=== PATIENT | male | born 1935 | race Caucasian/White ===

== ENCOUNTER → 2017-08-13 | Day surgery (SDC) | payer MEDICARE ==
--- NOTE | 2017-08-12 10:10 | Diagnostic Imaging Report ---
PROCEDURE: X-RAY CHEST, TWO VIEWS COMPARISON: 07/23/2016. INDICATIONS: PRE OPERATIVE CHEST X-RAY FOR HARDWARE REMOVAL FINDINGS: Lungs remain well-inflated and without consolidation, pleural effusion, or pneumothorax. 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 Normal heart size. No pulmonary edema. No acute osseous abnormality. CONCLUSION: No acute cardiopulmonary abnormality. Dictated by: Marshal Prabhakar M.D. on 08/12/2017 at 10:10 Electronically approved by: Marshal Prabhakar M.D. on 08/12/2017 at 10:10
[~2017-08-13] MED LIST: AMLODIPINE BESY10 MG PO; ASA325 PO; ASPIR 8181 MG PO; ASPIRIN PO; Aspirin PO; BACITRACIN 50,000 UNIT VIAL ONE; BUPIVACAINE 0.5%/EPI 30 ML SDV INJ ONE; CARVEDILOL3.125 MG PO; CEFAZOLIN SOD 1 GM VIAL ONE; DEXAMETHASONE SOD PHOS INJ 4 MG/ML VIAL ONE; DOCUSATE SODIU100 M1 PO; FENTANYL CITRATE/PF 100MCG/2 ML INJ ONE; FOSINOPRIL SODI10 MG PO; HUMALO SC; HYDROCHLOROTHIA25 MG; LANTUS SC; LEVEMIR100 UNIT/1 SQ; LIDOCAINE HCL 2% LOCAL INJ 5 ML SDV VIAL INJ ONE; NEOSTIGMINE 1 MG/ML 10ML VIAL ONE; NIFEDIPINE ER30 M1 PO; NIFEDIPINE ER60 M1 PO; NOVOLOG100 UNITS1 SQ; NRC7.5T PO; ONDANSETRON HCL INJ 2 MG/ML VIAL ONE; PROPOFOL IV EMULSION 10 MG/ML 20 ML VIAL ONE; SEVOFLURANE INHAL SOLN 250 ML PEN BTL ONE; SIMVASTATIN20 MG PO; ULTRAM 50MG50 MG PO; ULTRAM50 MG PO
--- OUTSIDE RECORDS SUMMARY | 2017-08-13 07:23 | XMS REPORT ---
Author Author [facility] Address Unknown Phone Unavailable Care Team Providers Care Crew Boss Name Role Phone MARSHAL GLOVER Unavailable Unavailable Problems This patient has no known problems. Allergies, Adverse Reactions, Alerts This patient has no known allergies or adverse reactions. Medications This patient has no known medications. Results Test Description Test Time Test Comments Text Results Atomic Results Result Comments CHEST 2 VIEWS [place] [address] Patient Name: EBENEZER BLUE MR #: [id number] : 1935 Age/Sex: 82/M Req #: [id number] Adm Physician: Ordered by: MARSHAL GLOVER MD Report #: [id number] Location: OR Room/Bed: Procedure: [id number] DX/CHEST 2 VIEWS Exam Date: 08/12/17 Exam Time: 0950 REPORT STATUS: Signed PROCEDURE: X-RAY CHEST, TWO VIEWS COMPARISON: 07/23/2016. INDICATIONS: PRE OPERATIVE CHEST X-RAY FOR HARDWARE REMOVAL FINDINGS: Lungs remain well-inflated and without consolidation, pleural effusion, or pneumothorax. 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 Normal heart size. No pulmonary edema. No acute osseous abnormality. CONCLUSION: No acute cardiopulmonary abnormality. Dictated by: Marshal Verduzco M.D. on 08/12/2017 at 10:10 Electronically approved by: Marshal Verduzco M.D. on 08/12/2017 at 10:10 Dictated By: MARSHAL VERDUZCO MD [id number] Transcribed By: KEYONNA on 08/12/17 1010 COPY TO: MARSHAL GLOVER MD
[2017-08-13 08:21] LABS: ANION GAP 12.4 mmol/L (8-16); CALCIUM 9.4 mg/dL (8.4-10.2); CREATININE, SERUM 1.35 mg/dL (0.72-1.25); POTASSIUM 4.4 mmol/L (3.5-5.1)
--- NOTE | 2017-08-13 10:37 | Operative Report ---
DATE OF PROCEDURE: August 13, 2017 COMMUNITY RELATIONS LIAISON: Jens Yang PA-C The patient was brought to the operating room for induction of anesthesia. Throughout this case, my PA's assistance was necessary for retraction of soft tissue and positioning of the extremity. This allows for efficient and technically successful execution of the operation and is considered medically necessary. PREOPERATIVE DIAGNOSIS: Right elbow complications of infection involving hardware. POSTOPERATIVE DIAGNOSIS: Right elbow complications of infection involving hardware. PROCEDURE: Right elbow irrigation and debridement with hardware removal. INDICATIONS: The patient is an 82-year-old gentleman who has medical comorbidities. 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 He fell several months ago and sustained an olecranon fracture. He was treated with an open reduction with internal fixation. This became infected. The bones have now essentially healed and he has a mild persistent draining sinus. We plan on debridement with hardware removal. The risks and benefits have been discussed. He states he understands and wishes to proceed. DESCRIPTION OF PROCEDURE: The patient was brought to the operating room and placed under general anesthetic. His right upper extremity was prepped and draped in a sterile manner. A preoperative time out was performed. The extremity was exsanguinated and a proximal tourniquet was inflated to 250 mmHg. The previous incision was opened. Some fibrous membrane was debrided. Cultures were taken. The hardware screws were removed. The plate was removed. A curette was used to debride all of the fibrous membrane. The wound was thoroughly irrigated with a Pulsavac. The screw holes were curetted. The wound was further irrigated with a Pulsavac. This all appeared nice and clean with complete removal of all the fibrous membrane that appeared infected. The skin was then closed with interrupted nylon stitches. Approximately 10 mL of 0.5% Marcaine with epinephrine was injected around the incision. A sterile bandage and a posterior splint was applied. He was extubated and transported to the recovery room in stable condition. There was no blood loss. All needle and sponge counts were correct. Job#: [id number] KRISTA
== END | disposition home or self-care (01) ==
LOC: OR 07:21
PROVIDERS: ATTEND Specialist
DX: T84.7XXA Infection and inflammatory reaction due to other internal orthopedic prosthetic devices, implants and grafts, initial encounter (principal); T84.192A Other mechanical complication of internal fixation device of bone of right forearm, initial encounter; Z46.89 Encounter for fitting and adjustment of other specified devices; I25.810 Atherosclerosis of coronary artery bypass graft(s) without angina pectoris; E11.22 Type 2 diabetes mellitus with diabetic chronic kidney disease; I13.0 Hypertensive heart and chronic kidney disease with heart failure and stage 1 through stage 4 chronic kidney disease, or unspecified chronic kidney disease; N18.9 Chronic kidney disease, unspecified; I50.9 Heart failure, unspecified; Y83.8 Other surgical procedures as the cause of abnormal reaction of the patient, or of later complication, without mention of misadventure at the time of the procedure; Z01.810 Encounter for preprocedural cardiovascular examination; Z01.818 Encounter for other preprocedural examination; Z79.4 Long term (current) use of insulin; Z68.33 Body mass index [BMI] 33.0-33.9, adult; Z91.81 History of falling; Z95.1 Presence of aortocoronary bypass graft; Z96.652 Presence of left artificial knee joint
CPT/HCPCS: 20680; 36415; 71046; 76000; 80048; 82948; 87071; 87075; 87186; 87205; 93005; J0690; J1100; J2001; J2405; J2710

== ENCOUNTER → 2021-11-14 | Day surgery (SDC) | payer MEDICARE ==
[~2021-11-14] MED LIST changes: +ATORVASTATIN CA20 MG PO; +ATROPINE SULFATE 1 MG/ML VIAL ONE; +B&O 60MG R/S 60 MG SUPP PR ONE; -BACITRACIN 50,000 UNIT VIAL ONE; -BUPIVACAINE 0.5%/EPI 30 ML SDV INJ ONE; -CEFAZOLIN SOD 1 GM VIAL ONE; +COREG6.25 MG PO; -DEXAMETHASONE SOD PHOS INJ 4 MG/ML VIAL ONE; +FLOMAX0.4 MG PO; +GLYCOPYRROLATE INJ 0.2 MG/ML VIAL ONE; +INSULIN REGULAR, HUMAN 100 UNIT/1 ML ONE; +IOPAMIDOL 610MG/1ML 300 MG/ML VIAL IV ONE; -NEOSTIGMINE 1 MG/ML 10ML VIAL ONE; -ONDANSETRON HCL INJ 2 MG/ML VIAL ONE; +ONDANSETRON HCL INJ 2MG/ML 2ML 2 MG/ML VIAL ONE; +PLAVIX75 MG PO; +POVIDONE IODINE 0.05% 0.05 % ML PO ONE; +SODIUM CHLORIDE 0.9% 1000ML 1,000 ML ONE
[2021-11-14 07:39] LABS: BASOPHILS # (AUTO) 0.1 (0.0-0.1); BASOPHILS % 1.4 % (0.0-1.0); EOSINOPHILS # (AUTO) 1.1 (0.0-0.4); EOSINOPHILS % 14.5 % (0.0-6.0); LYMPHOCYTES # (AUTO) 2.3 (1.0-3.2); MEAN CORPUSCULAR HEMOGLOBIN 29.9 pg (28-32); MEAN CORPUSCULAR HGB CONC 32.4 g/dL (31-35); MEAN CORPUSCULAR VOLUME 92.3 fL (81-99); MONOCYTES # (AUTO) 0.5 (0.2-0.8); MONOCYTES % 6.1 % (4.4-11.3); NEUTROPHILS # (AUTO) 3.6 (2.1-6.9); NEUTROPHILS % 47.5 % (38.7-80.0); PLATELET COUNT 224 x10e3/uL (140-360); RED BLOOD COUNT 4.01 x10e6/uL (4.3-5.7); RED CELL DISTRIBUTION WIDTH 13.5 % (11.7-14.4)
[2021-11-14 11:30] VITALS: BP 193/80
== END | disposition home or self-care (01) ==
LOC: OR 06:48
PROVIDERS: ATTEND Urology
DX: N40.0 Benign prostatic hyperplasia without lower urinary tract symptoms (principal); N39.0 Urinary tract infection, site not specified; E11.22 Type 2 diabetes mellitus with diabetic chronic kidney disease; I12.9 Hypertensive chronic kidney disease with stage 1 through stage 4 chronic kidney disease, or unspecified chronic kidney disease; N18.9 Chronic kidney disease, unspecified; N32.89 Other specified disorders of bladder; M19.90 Unspecified osteoarthritis, unspecified site; I25.2 Old myocardial infarction; I25.810 Atherosclerosis of coronary artery bypass graft(s) without angina pectoris; K21.9 Gastro-esophageal reflux disease without esophagitis; E66.9 Obesity, unspecified; H91.90 Unspecified hearing loss, unspecified ear; G62.9 Polyneuropathy, unspecified; Z88.6 Allergy status to analgesic agent; Z01.810 Encounter for preprocedural cardiovascular examination; Z01.812 Encounter for preprocedural laboratory examination; Z01.818 Encounter for other preprocedural examination; Z20.822 Contact with and (suspected) exposure to COVID-19; Z79.4 Long term (current) use of insulin; Z68.32 Body mass index [BMI] 32.0-32.9, adult; Z95.1 Presence of aortocoronary bypass graft; Z87.01 Personal history of pneumonia (recurrent)
CPT/HCPCS: 0223U; 36415 ×2; 52005; 52601; 71046; 74420; 82948; 85025; 93005; C1758 ×3; J0461; J0690; J2001; J2405; J2704; J3010; J7030; Q9967; J1817

== ENCOUNTER 2023-05-30 16:31 | Inpatient (IN) | payer MEDICARE ==
[~2023-05-30] VITALS: Ht 182.9 cm; Wt 121.1 kg
[~2023-05-30 16:31] MED LIST changes: -ATROPINE SULFATE 1 MG/ML VIAL ONE; -B&O 60MG R/S 60 MG SUPP PR ONE; -FENTANYL CITRATE/PF 100MCG/2 ML INJ ONE; -GLYCOPYRROLATE INJ 0.2 MG/ML VIAL ONE; -INSULIN REGULAR, HUMAN 100 UNIT/1 ML ONE; -IOPAMIDOL 610MG/1ML 300 MG/ML VIAL IV ONE; -LIDOCAINE HCL 2% LOCAL INJ 5 ML SDV VIAL INJ ONE; -ONDANSETRON HCL INJ 2MG/ML 2ML 2 MG/ML VIAL ONE; -POVIDONE IODINE 0.05% 0.05 % ML PO ONE; -PROPOFOL IV EMULSION 10 MG/ML 20 ML VIAL ONE; -SEVOFLURANE INHAL SOLN 250 ML PEN BTL ONE; -SODIUM CHLORIDE 0.9% 1000ML 1,000 ML ONE
[2023-05-30] MEDS ORDERED: SODIUM CHLORIDE 0.9% 1000ML 1,000 ML IV SCH (16:45)
[2023-05-30 18:32] LABS: BASOPHILS % 0.3 % (0.0-1.0); EOSINOPHILS # (AUTO) 0.1 (0.0-0.4); EOSINOPHILS % 0.4 % (0.0-6.0); HEMATOCRIT 37.7 % (38.2-49.6); HEMOGLOBIN 12.1 g/dL (14.0-18.0); LYMPHOCYTES # (AUTO) 0.8 (1.0-3.2); LYMPHOCYTES % 5.2 % (18.0-39.1); MEAN CORPUSCULAR HEMOGLOBIN 29.6 pg (28-32); MEAN CORPUSCULAR HGB CONC 32.1 g/dL (31-35); MEAN CORPUSCULAR VOLUME 92.2 fL (81-99); MONOCYTES % 6.2 % (4.4-11.3); NEUTROPHILS # (AUTO) 13.5 (2.1-6.9); NEUTROPHILS % 87.6 % (38.7-80.0); PLATELET COUNT 229 x10e3/uL (140-360); RED BLOOD COUNT 4.09 x10e6/uL (4.3-5.7); RED CELL DISTRIBUTION WIDTH 13.3 % (11.7-14.4); WHITE BLOOD COUNT 15.44 x10e3/uL (4.8-10.8)
[2023-05-30 18:51] LABS: TROPONIN I 0.032 ng/mL (0-0.300)
[2023-05-30 18:52] LABS: ALBUMIN 3.3 g/dL (3.5-5.0); ALBUMIN/GLOBULIN RATIO 0.9 (0.8-2.0); ANION GAP 12.6 mmol/L (8-16); BILIRUBIN,TOTAL 0.6 mg/dL (0.2-1.2); CALCIUM 9.1 mg/dL (8.4-10.2); CREATININE, SERUM 2.47 mg/dL (0.72-1.25); POTASSIUM 4.6 mmol/L (3.5-5.1)
[2023-05-30] MEDS: ACETAMINOPHEN 325 MG TAB PO STA (19:11)
[2023-05-30] MEDS: SODIUM CHLORIDE 0.9% 1000ML 1,000 ML IV STA (19:16)
[2023-05-30] MEDS: KETOROLAC TROMETHAMINE 30 MG/ML VIAL IV STA (19:21)
[2023-05-30] MEDS ORDERED: ONDANSETRON HCL INJ 2MG/ML 2ML 2 MG/ML VIAL IV PRN (20:45)
[2023-05-30] MEDS: HYDRALAZINE HCL 20 MG/ML VIAL IV PRN (22:57)
[2023-05-30] MEDS: SODIUM CHLORIDE 0.9% 1000ML 1,000 ML IV SCH (22:57)
[2023-05-30] MEDS ORDERED: HYDRALAZINE HCL 20 MG/ML VIAL ONE (22:58)
[2023-05-30 23:19] LABS: CLARITY,URINE CLEAR (CLEAR); COLOR,URINE YELLOW (YELLOW)
[2023-05-30 23:20] LABS: BILIRUBIN,URINE NEGATIVE (NEGATIVE); GLUCOSE, URINE 2+ (NEGATIVE); KETONES,URINE 1+ (NEGATIVE); LEUKOCYTE ESTERASE ,URINE NEGATIVE (NEGATIVE); NITRITE,URINE NEGATIVE (NEGATIVE); PH,URINE 7.5 (5 - 7); PROTEIN,URINE DIPSTICK >=300 (NEGATIVE); URINE UROBILINOGEN 0.2 mg/dL (0.2 - 1)
[2023-05-30 23:48] LABS: WBC,URINE (MAN) 0-5 /HPF (0-5)
[2023-05-30 23:49] LABS: BACTERIA,URINE FEW /HPF; EPITHELIAL CELLS,URINE FEW /LPF; RBC,URINE 0-5 /HPF (0-5)
[2023-05-31] VITALS (7 sets, daily range): BP systolic 149–197; BP diastolic 53–61; PULSE 59–66; RESP 16–20; TEMP 97.5–98.7; O2SAT 97–99
[2023-05-31] MEDS ORDERED: FINASTERIDE5 MG PO (08:23)
[2023-05-31] MEDS ORDERED: ACETAMINOPHEN 325 MG TAB PO PRN (10:00)
[2023-05-31] MEDS: CARVEDILOL 3.125 MG TAB PO SCH (13:13)
[2023-05-31] MEDS: NIFEDIPINE CR 30 MG TAB PO SCH (13:13)
[2023-05-31] MEDS: INSULIN LISPRO 100 UNIT/1 ML 3ML VIAL SQ SCH (13:14)
[2023-05-31 16:31] LABS: BASOPHILS # (AUTO) 0.1 (0.0-0.1); BASOPHILS % 0.5 % (0.0-1.0); EOSINOPHILS % 0.1 % (0.0-6.0); HEMATOCRIT 34.4 % (38.2-49.6); HEMOGLOBIN 10.8 g/dL (14.0-18.0); LYMPHOCYTES # (AUTO) 1.5 (1.0-3.2); LYMPHOCYTES % 10.6 % (18.0-39.1); MEAN CORPUSCULAR HEMOGLOBIN 29.4 pg (28-32); MEAN CORPUSCULAR HGB CONC 31.4 g/dL (31-35); MEAN CORPUSCULAR VOLUME 93.7 fL (81-99); MONOCYTES # (AUTO) 0.5 (0.2-0.8); MONOCYTES % 3.1 % (4.4-11.3); NEUTROPHILS # (AUTO) 12.3 (2.1-6.9); NEUTROPHILS % 85.2 % (38.7-80.0); PLATELET COUNT 185 x10e3/uL (140-360); RED BLOOD COUNT 3.67 x10e6/uL (4.3-5.7); RED CELL DISTRIBUTION WIDTH 13.9 % (11.7-14.4); WHITE BLOOD COUNT 14.41 x10e3/uL (4.8-10.8)
[2023-05-31 16:55] LABS: TROPONIN I 0.129 ng/mL (0-0.300)
[2023-05-31 17:11] LABS: ALBUMIN 2.7 g/dL (3.5-5.0); ALBUMIN/GLOBULIN RATIO 0.8 (0.8-2.0); ANION GAP 15.7 mmol/L (8-16); BILIRUBIN,TOTAL 0.5 mg/dL (0.2-1.2); CALCIUM 8.2 mg/dL (8.4-10.2); CREATININE, SERUM 2.7 mg/dL (0.72-1.25); POTASSIUM 4.7 mmol/L (3.5-5.1); TOTAL PROTEIN 6.2 g/dL (6.5-8.1)
[2023-05-31] MEDS: HYDRALAZINE HCL 20 MG/ML VIAL IV PRN (17:59)
[2023-05-31] MEDS: ENOXAPARIN SOD INJ 40 MG/0.4 ML SYR SC SCH (17:59)
[2023-05-31] MEDS: TAMSULOSIN HCL 0.4 MG CAP PO SCH (18:08)
[2023-05-31] MEDS: CARVEDILOL 12.5 MG TAB PO SCH (18:17)
[2023-05-31] MEDS: INSULIN GLARGINE 100 UNITS/ML VIAL SQ SCH (21:07)
[2023-06-01] VITALS (7 sets, daily range): BP systolic 140–176; BP diastolic 41–67; PULSE 52–60; RESP 18–20; TEMP 97.2–98.4; O2SAT 96–100
[2023-06-01 08:42] LABS: BASOPHILS # (AUTO) 0.1 (0.0-0.1); BASOPHILS % 0.6 % (0.0-1.0); EOSINOPHILS # (AUTO) 0.7 (0.0-0.4); EOSINOPHILS % 6.1 % (0.0-6.0); HEMATOCRIT 31.6 % (38.2-49.6); HEMOGLOBIN 10.3 g/dL (14.0-18.0); LYMPHOCYTES # (AUTO) 1.6 (1.0-3.2); LYMPHOCYTES % 13.7 % (18.0-39.1); MEAN CORPUSCULAR HEMOGLOBIN 29.4 pg (28-32); MEAN CORPUSCULAR HGB CONC 32.6 g/dL (31-35); MEAN CORPUSCULAR VOLUME 90.3 fL (81-99); MONOCYTES # (AUTO) 0.5 (0.2-0.8); MONOCYTES % 4.2 % (4.4-11.3); NEUTROPHILS # (AUTO) 8.9 (2.1-6.9); PLATELET COUNT 206 x10e3/uL (140-360); RED CELL DISTRIBUTION WIDTH 14.2 % (11.7-14.4); WHITE BLOOD COUNT 11.89 x10e3/uL (4.8-10.8)
[2023-06-01] MEDS ORDERED: NIFEDIPINE CR 30 MG TAB PO SCH (09:00)
[2023-06-01 09:16] LABS: ALBUMIN 2.4 g/dL (3.5-5.0); ALBUMIN/GLOBULIN RATIO 0.7 (0.8-2.0); ANION GAP 14.2 mmol/L (8-16); BILIRUBIN,TOTAL 0.5 mg/dL (0.2-1.2); CALCIUM 8.4 mg/dL (8.4-10.2); CREATININE, SERUM 2.91 mg/dL (0.72-1.25); POTASSIUM 4.2 mmol/L (3.5-5.1); THYROID STIMULATING HORMONE 1.438 uIU/mL (0.350-4.940); TOTAL PROTEIN 5.9 g/dL (6.5-8.1)
[2023-06-01] MEDS: FINASTERIDE 5 MG TAB PO SCH (09:55)
[2023-06-01] MEDS: NIFEDIPINE CR 30 MG TAB PO SCH (09:55)
[2023-06-01 13:43] LABS: TROPONIN I 1.047 ng/mL (0-0.300)
[2023-06-01] MEDS ORDERED: MANNITOL 20% 500ML 500 ML IV ONE (20:51)
[2023-06-02] VITALS (9 sets, daily range): BP systolic 126–190; BP diastolic 54–67; PULSE 51–64; RESP 18–20; TEMP 97.1–99.1; O2SAT 96–100
[2023-06-02 03:56] LABS: BASOPHILS # (AUTO) 0.1 (0.0-0.1); BASOPHILS % 0.6 % (0.0-1.0); EOSINOPHILS # (AUTO) 1.3 (0.0-0.4); EOSINOPHILS % 13.9 % (0.0-6.0); HEMATOCRIT 30.6 % (38.2-49.6); HEMOGLOBIN 9.9 g/dL (14.0-18.0); LYMPHOCYTES # (AUTO) 1.5 (1.0-3.2); LYMPHOCYTES % 15.2 % (18.0-39.1); MEAN CORPUSCULAR HEMOGLOBIN 29.8 pg (28-32); MEAN CORPUSCULAR HGB CONC 32.4 g/dL (31-35); MEAN CORPUSCULAR VOLUME 92.2 fL (81-99); MONOCYTES # (AUTO) 0.6 (0.2-0.8); MONOCYTES % 6.3 % (4.4-11.3); NEUTROPHILS # (AUTO) 6.1 (2.1-6.9); NEUTROPHILS % 63.8 % (38.7-80.0); PLATELET COUNT 187 x10e3/uL (140-360); RED BLOOD COUNT 3.32 x10e6/uL (4.3-5.7); RED CELL DISTRIBUTION WIDTH 13.8 % (11.7-14.4)
[2023-06-02 04:15] LABS: ANION GAP 11.7 mmol/L (8-16); CALCIUM 8.2 mg/dL (8.4-10.2); CREATININE, SERUM 3.17 mg/dL (0.72-1.25); POTASSIUM 3.7 mmol/L (3.5-5.1)
[2023-06-03] VITALS (8 sets, daily range): BP systolic 141–188; BP diastolic 53–63; PULSE 51–65; RESP 17–18; TEMP 97.6–98.3; O2SAT 96–100
[2023-06-03] MEDS: DEXTROSE 50% SYRINGE 50 ML IV PRN (07:56)
[2023-06-03] MEDS: DEXTROSE 5%/0.9% SOD CHL 1,000 ML IV SCH (10:38)
[2023-06-03] MEDS ORDERED: ONDANSETRON HCL 4 MG ORAL DISINTEGRATING TAB PO PRN (14:00)
[2023-06-03] MEDS: CARVEDILOL 12.5 MG TAB PO SCH (17:03)
[2023-06-03] MEDS ORDERED: INSULIN GLARGINE 100 UNITS/ML VIAL SQ SCH (21:00)
[2023-06-03] MEDS: INSULIN GLARGINE 100 UNITS/ML VIAL SQ SCH (21:00)
[2023-06-04] VITALS (7 sets, daily range): BP systolic 154–179; BP diastolic 53–64; PULSE 60–70; RESP 18; TEMP 98; O2SAT 96–99
[2023-06-04 05:54] LABS: BASOPHILS % 0.4 % (0.0-1.0); EOSINOPHILS # (AUTO) 1.5 (0.0-0.4); HEMATOCRIT 33.8 % (38.2-49.6); HEMOGLOBIN 11.2 g/dL (14.0-18.0); LYMPHOCYTES # (AUTO) 1.4 (1.0-3.2); MEAN CORPUSCULAR HEMOGLOBIN 30.1 pg (28-32); MEAN CORPUSCULAR HGB CONC 33.1 g/dL (31-35); MEAN CORPUSCULAR VOLUME 90.9 fL (81-99); MONOCYTES # (AUTO) 0.6 (0.2-0.8); MONOCYTES % 6.7 % (4.4-11.3); NEUTROPHILS # (AUTO) 5.3 (2.1-6.9); NEUTROPHILS % 59.2 % (38.7-80.0); PLATELET COUNT 220 x10e3/uL (140-360); RED BLOOD COUNT 3.72 x10e6/uL (4.3-5.7); RED CELL DISTRIBUTION WIDTH 14.1 % (11.7-14.4); WHITE BLOOD COUNT 8.95 x10e3/uL (4.8-10.8)
[2023-06-04 06:18] LABS: ANION GAP 10.7 mmol/L (8-16); CALCIUM 8.2 mg/dL (8.4-10.2); CREATININE, SERUM 3.07 mg/dL (0.72-1.25); POTASSIUM 3.7 mmol/L (3.5-5.1)
[2023-06-04] MEDS: NIFEDIPINE CR 30 MG TAB PO SCH (10:29)
[2023-06-04 10:52] LABS: TROPONIN I 0.264 ng/mL (0-0.300)
[2023-06-04] MEDS: ASPIRIN 81 MG CHEW TAB PO ONE (13:08)
[2023-06-04] MEDS: Morphine 4mg INJECTION 4 MG/ML INJ IV PRN (20:21)
[2023-06-04] MEDS: CARVEDILOL 12.5 MG TAB PO SCH (20:23)
[2023-06-05] VITALS (45 sets, daily range): BP systolic 141–197; BP diastolic 47–67; PULSE 36–88; RESP 13–20; TEMP 97.8–98.7; O2SAT 97–100
[2023-06-05 05:54] LABS: BASOPHILS # (AUTO) 0.1 (0.0-0.1); BASOPHILS % 0.7 % (0.0-1.0); EOSINOPHILS # (AUTO) 1.9 (0.0-0.4); EOSINOPHILS % 21.1 % (0.0-6.0); HEMOGLOBIN 9.9 g/dL (14.0-18.0); LYMPHOCYTES % 21.7 % (18.0-39.1); MEAN CORPUSCULAR HEMOGLOBIN 29.8 pg (28-32); MEAN CORPUSCULAR HGB CONC 31.9 g/dL (31-35); MEAN CORPUSCULAR VOLUME 93.4 fL (81-99); MONOCYTES # (AUTO) 0.7 (0.2-0.8); NEUTROPHILS # (AUTO) 4.3 (2.1-6.9); NEUTROPHILS % 47.9 % (38.7-80.0); PLATELET COUNT 197 x10e3/uL (140-360); RED BLOOD COUNT 3.32 x10e6/uL (4.3-5.7); RED CELL DISTRIBUTION WIDTH 14.1 % (11.7-14.4); WHITE BLOOD COUNT 8.99 x10e3/uL (4.8-10.8)
[2023-06-05 06:11] LABS: INR 1.2; PROTHROMBIN TIME 15.5 seconds (11.9-14.5)
[2023-06-05 06:38] LABS: ALBUMIN 2.3 g/dL (3.5-5.0); ALBUMIN/GLOBULIN RATIO 0.7 (0.8-2.0); ANION GAP 10.5 mmol/L (8-16); BILIRUBIN,TOTAL 0.3 mg/dL (0.2-1.2); CREATININE, SERUM 2.98 mg/dL (0.72-1.25); POTASSIUM 3.5 mmol/L (3.5-5.1); TOTAL PROTEIN 5.5 g/dL (6.5-8.1)
[2023-06-05] MEDS ORDERED: ACETAMINOPHEN 1000 MG/100 ML 100 ML IV ONE (09:58)
[2023-06-05] MEDS ORDERED: SUGAMMADEX SODIUM 200 MG/2 ML VIAL IV ONE (09:58)
[2023-06-05] MEDS ORDERED: IOPAMIDOL 610MG/1ML 300 MG/ML VIAL IV ONE ×2 (10:27→12:00)
[2023-06-05] MEDS ORDERED: BUPIVACAINE HCL 0.5% INJ 30 ML VIAL INJ ONE (10:27)
[2023-06-05 11:25] LABS: EOSINOPHILS % (MANUAL) 20 % (0-7); LYMPHOCYTES % (MANUAL) 26 % (19-48); MONOCYTES % (MANUAL) 4 % (3.4-9.0); NEUTROPHILS % (MANUAL) 50 % (40-74); PLATELET ESTIMATE ADEQUATE; PLATELET MORPHOLOGY COMMENT NORMAL; RBC MORPHOLOGY COMMENT NORMAL
[2023-06-05] MEDS ORDERED: ONDANSETRON HCL INJ 2MG/ML 2ML 2 MG/ML VIAL ONE (12:35)
[2023-06-05] MEDS ORDERED: SEVOFLURANE INHAL SOLN 250 ML PEN BTL ONE (12:35)
[2023-06-05] MEDS ORDERED: DEXAMETHASONE SOD PHOS INJ 4 MG/ML SDV ONE (12:35)
[2023-06-05] MEDS ORDERED: ROCURONIUM BROMIDE 10 MG/ML 5ML VIAL IV ONE (12:35)
[2023-06-05] MEDS ORDERED: PROPOFOL IV EMULSION 10 MG/ML 20 ML VIAL ONE (12:35)
[2023-06-05] MEDS ORDERED: LIDOCAINE HCL 2% LOCAL INJ 5 ML SDV VIAL INJ ONE (12:35)
[2023-06-05] MEDS ORDERED: HYDRALAZINE HCL 20 MG/ML VIAL ONE (12:35)
[2023-06-05] MEDS: MIDAZOLAM HCL 2 MG/2 ML VIAL ONE (13:01)
[2023-06-05] MEDS ORDERED: FENTANYL CITRATE/PF 100MCG/2 ML INJ ONE (13:04)
[2023-06-05] MEDS: FENTANYL CITRATE/PF 100MCG/2 ML INJ ONE (13:14)
[2023-06-05] MEDS ORDERED: PROPOFOL IV EMULSION 10MG/ML 100 ML ONE (14:38)
[2023-06-05] MEDS: PROPOFOL IV EMULSION 10MG/ML 100 ML IV PRN (15:03)
[2023-06-05] MEDS ORDERED: HYDRALAZINE HCL 20 MG/ML VIAL IV PRN (16:00)
[2023-06-05] MEDS ORDERED: NITROGLYCERIN/D5W 200 MCG/ML 250 ML IV SCH (16:00)
[2023-06-05 18:05] LABS: ABG HCO3 16 mmol/L (22-26); ABG PCO2 29 mmHg (35-45); ABG PH 7.33 (7.35-7.45); ABG PO2 129 mmHg (80-105); ABG TCO2 16
[2023-06-05] MEDS: HYDRALAZINE HCL 20 MG/ML VIAL IV SCH (18:06)
[2023-06-05] MEDS: ATROPINE SULFATE 0.1 MG/ML 10ML SYR IV ONE (18:29)
[2023-06-05] MEDS: SODIUM BICARBONATE 8.4% INJ 50 ML SYR IV STA (18:29)
[2023-06-05] MEDS: SODIUM CHLORIDE 0.45% 1,000 ML IV SCH (18:29)
[2023-06-05] MEDS: SODIUM BICARBONATE 8.4% SYRING 50 ML ONE (18:46)
[2023-06-05] MEDS: INSULIN GLARGINE 100 UNITS/ML VIAL SQ SCH (21:54)
[2023-06-06] VITALS (42 sets, daily range): BP systolic 123–183; BP diastolic 41–134; PULSE 34–68; RESP 13–24; TEMP 97.6–98.7; O2SAT 94–100
[2023-06-06 06:41] LABS: HEMATOCRIT 32.7 % (38.2-49.6); HEMOGLOBIN 10.2 g/dL (14.0-18.0); MEAN CORPUSCULAR HEMOGLOBIN 29.5 pg (28-32); MEAN CORPUSCULAR HGB CONC 31.2 g/dL (31-35); MEAN CORPUSCULAR VOLUME 94.5 fL (81-99); PLATELET COUNT 210 x10e3/uL (140-360); RED BLOOD COUNT 3.46 x10e6/uL (4.3-5.7); RED CELL DISTRIBUTION WIDTH 14.4 % (11.7-14.4); WHITE BLOOD COUNT 9.67 x10e3/uL (4.8-10.8)
[2023-06-06 07:04] LABS: ALBUMIN 2.1 g/dL (3.5-5.0); ALBUMIN/GLOBULIN RATIO 0.7 (0.8-2.0); ANION GAP 11.2 mmol/L (8-16); BILIRUBIN,TOTAL 0.3 mg/dL (0.2-1.2); CALCIUM 8.3 mg/dL (8.4-10.2); CREATININE, SERUM 3.13 mg/dL (0.72-1.25); POTASSIUM 4.2 mmol/L (3.5-5.1); TOTAL PROTEIN 5.3 g/dL (6.5-8.1)
[2023-06-06] MEDS: FUROSEMIDE INJ 10 MG/ML 2 ML VIAL IV ONE (09:22)
[2023-06-06] MEDS: HYDRALAZINE HCL 20 MG/ML VIAL IV ONE (09:23)
[2023-06-06 14:07] LABS: BAND NEUTROPHILS % (MANUAL) 2 %; LYMPHOCYTES % (MANUAL) 13 % (19-48); MONOCYTES % (MANUAL) 4 % (3.4-9.0); NEUTROPHILS % (MANUAL) 81 % (40-74); PLATELET ESTIMATE ADEQUATE; PLATELET MORPHOLOGY COMMENT NORMAL
[2023-06-07] VITALS (22 sets, daily range): BP systolic 147–187; BP diastolic 41–99; PULSE 60–72; RESP 16–22; TEMP 98.1–98.4; O2SAT 94–100
[2023-06-07 06:52] LABS: BASOPHILS # (AUTO) 0.1 (0.0-0.1); BASOPHILS % 0.7 % (0.0-1.0); EOSINOPHILS # (AUTO) 0.9 (0.0-0.4); EOSINOPHILS % 7.9 % (0.0-6.0); HEMATOCRIT 31.1 % (38.2-49.6); HEMOGLOBIN 9.9 g/dL (14.0-18.0); LYMPHOCYTES # (AUTO) 2.4 (1.0-3.2); LYMPHOCYTES % 21.2 % (18.0-39.1); MEAN CORPUSCULAR HEMOGLOBIN 29.6 pg (28-32); MEAN CORPUSCULAR HGB CONC 31.8 g/dL (31-35); MEAN CORPUSCULAR VOLUME 93.1 fL (81-99); MONOCYTES # (AUTO) 0.9 (0.2-0.8); MONOCYTES % 7.6 % (4.4-11.3); NEUTROPHILS # (AUTO) 6.8 (2.1-6.9); NEUTROPHILS % 61.3 % (38.7-80.0); PLATELET COUNT 237 x10e3/uL (140-360); RED BLOOD COUNT 3.34 x10e6/uL (4.3-5.7); RED CELL DISTRIBUTION WIDTH 14.9 % (11.7-14.4); WHITE BLOOD COUNT 11.16 x10e3/uL (4.8-10.8)
[2023-06-07 07:28] LABS: ALBUMIN 2.2 g/dL (3.5-5.0); ALBUMIN/GLOBULIN RATIO 0.7 (0.8-2.0); ANION GAP 11.9 mmol/L (8-16); BILIRUBIN,TOTAL 0.2 mg/dL (0.2-1.2); CREATININE, SERUM 4.05 mg/dL (0.72-1.25); POTASSIUM 3.9 mmol/L (3.5-5.1); TOTAL PROTEIN 5.5 g/dL (6.5-8.1)
[2023-06-08] VITALS (11 sets, daily range): BP systolic 141–209; BP diastolic 55–68; PULSE 64–78; RESP 18–20; TEMP 97.1–98.9; O2SAT 95–100
[2023-06-08 07:10] LABS: BASOPHILS # (AUTO) 0.1 (0.0-0.1); BASOPHILS % 0.7 % (0.0-1.0); EOSINOPHILS # (AUTO) 1.4 (0.0-0.4); EOSINOPHILS % 13.8 % (0.0-6.0); HEMATOCRIT 32.6 % (38.2-49.6); HEMOGLOBIN 10.2 g/dL (14.0-18.0); LYMPHOCYTES # (AUTO) 2.3 (1.0-3.2); LYMPHOCYTES % 22.2 % (18.0-39.1); MEAN CORPUSCULAR HEMOGLOBIN 29.8 pg (28-32); MEAN CORPUSCULAR HGB CONC 31.3 g/dL (31-35); MEAN CORPUSCULAR VOLUME 95.3 fL (81-99); MONOCYTES # (AUTO) 0.9 (0.2-0.8); MONOCYTES % 8.3 % (4.4-11.3); NEUTROPHILS # (AUTO) 5.6 (2.1-6.9); NEUTROPHILS % 53.8 % (38.7-80.0); PLATELET COUNT 250 x10e3/uL (140-360); RED BLOOD COUNT 3.42 x10e6/uL (4.3-5.7); RED CELL DISTRIBUTION WIDTH 14.8 % (11.7-14.4)
[2023-06-08 07:30] LABS: ALBUMIN 2.3 g/dL (3.5-5.0); ALBUMIN/GLOBULIN RATIO 0.7 (0.8-2.0); ANION GAP 15.9 mmol/L (8-16); BILIRUBIN,TOTAL 0.2 mg/dL (0.2-1.2); CALCIUM 8.3 mg/dL (8.4-10.2); CREATININE, SERUM 4.34 mg/dL (0.72-1.25); POTASSIUM 3.9 mmol/L (3.5-5.1); TOTAL PROTEIN 5.5 g/dL (6.5-8.1)
[2023-06-08] MEDS: TEMAZEPAM 15 MG CAP PO PRN (21:46)
[2023-06-09] VITALS (11 sets, daily range): BP systolic 146–201; BP diastolic 58–148; PULSE 67–76; RESP 16–20; TEMP 97.8–98.6; O2SAT 96–100
[2023-06-09 06:49] LABS: CALCIUM 8.4 mg/dL (8.4-10.2); CREATININE, SERUM 3.9 mg/dL (0.72-1.25)
[2023-06-09] MEDS ORDERED: TRAMADOL HCL 50 MG TAB PO PRN (10:15)
[2023-06-09] MEDS: METOPROLOL TARTRATE 25 MG TAB PO SCH (12:40)
[2023-06-09] MEDS: HYDRALAZINE HCL 25 MG TAB PO SCH (12:41)
[2023-06-09] MEDS: PANTOPRAZOLE SOD 40 MG TABEC PO ONE (16:15)
[2023-06-09] MEDS: INSULIN GLARGINE 100 UNITS/ML VIAL SQ SCH (20:53)
[2023-06-10] VITALS (10 sets, daily range): BP systolic 151–213; BP diastolic 53–78; PULSE 65–76; RESP 18–22; TEMP 98.1–98.7; O2SAT 93–100
[2023-06-10] MEDS: HYDRALAZINE HCL 20 MG/ML VIAL IV PRN (00:14)
[2023-06-10] MEDS: PANTOPRAZOLE SOD 40 MG TABEC PO SCH (05:35)
[2023-06-10 06:30] LABS: BILIRUBIN,URINE NEGATIVE (NEGATIVE); CLARITY,URINE CLEAR (CLEAR); COLOR,URINE YELLOW (YELLOW); GLUCOSE, URINE 1+ (NEGATIVE); KETONES,URINE NEGATIVE (NEGATIVE); LEUKOCYTE ESTERASE ,URINE NEGATIVE (NEGATIVE); NITRITE,URINE NEGATIVE (NEGATIVE); PH,URINE 5.5 (5 - 7); PROTEIN,URINE DIPSTICK 2+ (NEGATIVE); URINE UROBILINOGEN 0.2 mg/dL (0.2 - 1)
[2023-06-10 06:40] LABS: CALCIUM 8.3 mg/dL (8.4-10.2); CREATININE, SERUM 3.56 mg/dL (0.72-1.25); POTASSIUM 3.7 mmol/L (3.5-5.1)
[2023-06-10 06:49] LABS: BACTERIA,URINE RARE /HPF; EPITHELIAL CELLS,URINE RARE /LPF; RBC,URINE 21-50 /HPF (0-5); WBC,URINE (MAN) 0-5 /HPF (0-5)
[2023-06-10 07:06] LABS: ANION GAP 12.7 mmol/L (8-16)
[2023-06-10 08:40] LABS: EOSINOPHIL SMEAR,URINE NONE SEEN (NONE SEEN)
[2023-06-11] VITALS (10 sets, daily range): BP systolic 152–215; BP diastolic 54–77; PULSE 64–76; RESP 16–22; TEMP 97.7–98.7; O2SAT 97–100
[2023-06-11 06:12] LABS: ANION GAP 10.8 mmol/L (8-16); CALCIUM 8.1 mg/dL (8.4-10.2); CREATININE, SERUM 3.84 mg/dL (0.72-1.25); POTASSIUM 3.8 mmol/L (3.5-5.1)
[2023-06-11] MEDS: HYDRALAZINE HCL 100 MG TABLET PO SCH (09:00)
[2023-06-11] MEDS: METOPROLOL TARTRATE 50 MG TAB PO SCH (09:00)
[2023-06-11] MEDS: FUROSEMIDE INJ 10 MG/ML 2 ML VIAL IV SCH (16:52)
[2023-06-11 17:10] LABS: CREATININE,URINE RANDOM 62.47 mg/dL (63-166)
[2023-06-12] VITALS (9 sets, daily range): BP systolic 142–193; BP diastolic 47–71; PULSE 59–74; RESP 18–22; TEMP 98.1–98.7; O2SAT 94–100
[2023-06-12 06:32] LABS: ANION GAP 11.4 mmol/L (8-16); CALCIUM 8.5 mg/dL (8.4-10.2); CREATININE, SERUM 3.51 mg/dL (0.72-1.25)
[2023-06-12 06:42] LABS: POTASSIUM 3.4 mmol/L (3.5-5.1)
[2023-06-12] MEDS: POTASSIUM CHLORIDE 10MEQ EA PO ONE (10:32)
[2023-06-13] VITALS (9 sets, daily range): BP systolic 153–187; BP diastolic 47–58; PULSE 59–75; RESP 18–22; TEMP 98–98.8; O2SAT 94–100
[2023-06-13 10:05] LABS: BASOPHILS # (AUTO) 0.1 (0.0-0.1); BASOPHILS % 0.5 % (0.0-1.0); EOSINOPHILS # (AUTO) 1.3 (0.0-0.4); EOSINOPHILS % 9.8 % (0.0-6.0); HEMOGLOBIN 10.1 g/dL (14.0-18.0); LYMPHOCYTES # (AUTO) 1.9 (1.0-3.2); LYMPHOCYTES % 15.2 % (18.0-39.1); MEAN CORPUSCULAR HEMOGLOBIN 29.5 pg (28-32); MEAN CORPUSCULAR HGB CONC 31.6 g/dL (31-35); MEAN CORPUSCULAR VOLUME 93.6 fL (81-99); MONOCYTES # (AUTO) 0.8 (0.2-0.8); NEUTROPHILS # (AUTO) 8.6 (2.1-6.9); NEUTROPHILS % 67.7 % (38.7-80.0); PLATELET COUNT 234 x10e3/uL (140-360); RED BLOOD COUNT 3.42 x10e6/uL (4.3-5.7); RED CELL DISTRIBUTION WIDTH 14.5 % (11.7-14.4); WHITE BLOOD COUNT 12.73 x10e3/uL (4.8-10.8)
[2023-06-13 10:25] LABS: ANION GAP 12.9 mmol/L (8-16); CALCIUM 8.4 mg/dL (8.4-10.2); CREATININE, SERUM 3.66 mg/dL (0.72-1.25); POTASSIUM 3.9 mmol/L (3.5-5.1)
[2023-06-13] MEDS: SERTRALINE HCL 50 MG TAB PO SCH (15:08)
[2023-06-14] VITALS (7 sets, daily range): BP systolic 160–179; BP diastolic 45–56; PULSE 60–69; RESP 18–20; TEMP 97.8–98.7; O2SAT 94–100
[2023-06-14] MEDS: INSULIN GLARGINE 100 UNITS/ML VIAL SQ SCH (21:00)
[2023-06-15] VITALS (9 sets, daily range): BP systolic 154–169; BP diastolic 45–58; PULSE 58–70; RESP 18–20; TEMP 97.8–98.6; O2SAT 96–100
[2023-06-15 05:56] LABS: ANION GAP 14.3 mmol/L (8-16); CALCIUM 8.3 mg/dL (8.4-10.2); CREATININE, SERUM 3.83 mg/dL (0.72-1.25)
[2023-06-15 06:01] LABS: POTASSIUM 3.3 mmol/L (3.5-5.1)
[2023-06-16] VITALS (10 sets, daily range): BP systolic 146–185; BP diastolic 49–56; PULSE 59–68; RESP 16–20; TEMP 97.8–98.5; O2SAT 95–100
[2023-06-16 05:43] LABS: ANION GAP 14.3 mmol/L (8-16); CALCIUM 8.1 mg/dL (8.4-10.2); CREATININE, SERUM 3.81 mg/dL (0.72-1.25)
[2023-06-16 05:48] LABS: POTASSIUM 3.3 mmol/L (3.5-5.1)
[2023-06-16] MEDS: ENOXAPARIN 30 MG/0.3 ML SYR SC SCH (21:28)
[2023-06-17] VITALS: BP 151/47; PULSE 58; RESP 20; TEMP 98.4; O2SAT 100
[2023-06-17 04:00] VITALS: BP 148/47; PULSE 60; RESP 18; TEMP 98.3; O2SAT 100
[2023-06-17 08:10] VITALS: BP 157/50; PULSE 62; RESP 21; TEMP 97.9; O2SAT 100
[2023-06-17 08:33] VITALS: BP 157/50
[2023-06-17 08:45] LABS: BASOPHILS # (AUTO) 0.1 (0.0-0.1); EOSINOPHILS # (AUTO) 1.9 (0.0-0.4); EOSINOPHILS % 15.1 % (0.0-6.0); HEMATOCRIT 29.9 % (38.2-49.6); HEMOGLOBIN 9.5 g/dL (14.0-18.0); LYMPHOCYTES # (AUTO) 1.5 (1.0-3.2); LYMPHOCYTES % 12.4 % (18.0-39.1); MEAN CORPUSCULAR HEMOGLOBIN 29.2 pg (28-32); MEAN CORPUSCULAR HGB CONC 31.8 g/dL (31-35); MONOCYTES # (AUTO) 0.9 (0.2-0.8); MONOCYTES % 6.9 % (4.4-11.3); NEUTROPHILS # (AUTO) 7.9 (2.1-6.9); NEUTROPHILS % 64.2 % (38.7-80.0); PLATELET COUNT 220 x10e3/uL (140-360); RED BLOOD COUNT 3.25 x10e6/uL (4.3-5.7); RED CELL DISTRIBUTION WIDTH 14.1 % (11.7-14.4); WHITE BLOOD COUNT 12.34 x10e3/uL (4.8-10.8)
[2023-06-17 08:50] VITALS: PULSE 57; RESP 18; O2SAT 96
[2023-06-17 09:07] LABS: ANION GAP 13.6 mmol/L (8-16); CREATININE, SERUM 3.92 mg/dL (0.72-1.25); POTASSIUM 3.6 mmol/L (3.5-5.1)
[2023-06-17] MEDS ORDERED: HYDRALAZINE HCL 25 MG TAB PO PRN (10:15)
[2023-06-18] MEDS ORDERED: FUROSEMIDE 40 MG TAB PO SCH (09:00)
== END 2023-06-17 11:46 | DRG 853 ==
LOC: ER 16:42 → ERHOLD 20:38 → MED/SURG3 05-31 00:37 → ICU 06-05 14:25 → MED/SURG 06-07 09:43
PROVIDERS: ADMIT Internal Medicine; ATTEND Internal Medicine
PROC: 3E04329 Introduction of Other Anti-infective into Central Vein, Percutaneous Approach (ICD-10-PCS; 2023-06-03)
PROC: 0FT44ZZ Resection of Gallbladder, Percutaneous Endoscopic Approach (ICD-10-PCS; 2023-06-05)
PROC: 0F798ZZ Dilation of Common Bile Duct, Via Natural or Artificial Opening Endoscopic (ICD-10-PCS; 2023-06-05)
PROC: BF101ZZ Fluoroscopy of Bile Ducts using Low Osmolar Contrast (ICD-10-PCS; 2023-06-05)
PROC: 02HV33Z Insertion of Infusion Device into Superior Vena Cava, Percutaneous Approach (ICD-10-PCS; 2023-06-05)
PROC: B548ZZA Ultrasonography of Superior Vena Cava, Guidance (ICD-10-PCS; 2023-06-05)
PROC: 4A033R1 Measurement of Arterial Saturation, Peripheral, Percutaneous Approach (ICD-10-PCS; 2023-06-05)
PROC: 0FC98ZZ Extirpation of Matter from Common Bile Duct, Via Natural or Artificial Opening Endoscopic (ICD-10-PCS; principal; 2023-06-05 11:20)
DX: A41.9 Sepsis, unspecified organism (principal); N17.0 Acute kidney failure with tubular necrosis; K80.42 Calculus of bile duct with acute cholecystitis without obstruction; N17.9 Acute kidney failure, unspecified; I12.9 Hypertensive chronic kidney disease with stage 1 through stage 4 chronic kidney disease, or unspecified chronic kidney disease; E11.22 Type 2 diabetes mellitus with diabetic chronic kidney disease; N18.30 Chronic kidney disease, stage 3 unspecified; M19.90 Unspecified osteoarthritis, unspecified site; I25.10 Atherosclerotic heart disease of native coronary artery without angina pectoris; M51.36 Other intervertebral disc degeneration, lumbar region; E78.00 Pure hypercholesterolemia, unspecified; I83.90 Asymptomatic varicose veins of unspecified lower extremity; Z96.653 Presence of artificial knee joint, bilateral; E11.42 Type 2 diabetes mellitus with diabetic polyneuropathy; E66.9 Obesity, unspecified; R00.1 Bradycardia, unspecified; D64.9 Anemia, unspecified; K57.90 Diverticulosis of intestine, part unspecified, without perforation or abscess without bleeding; E11.649 Type 2 diabetes mellitus with hypoglycemia without coma; E86.0 Dehydration; R33.9 Retention of urine, unspecified; I16.0 Hypertensive urgency; H91.90 Unspecified hearing loss, unspecified ear; Z79.02 Long term (current) use of antithrombotics/antiplatelets; Z95.1 Presence of aortocoronary bypass graft; Z86.718 Personal history of other venous thrombosis and embolism; Z91.81 History of falling; Z79.899 Other long term (current) drug therapy; Z68.36 Body mass index [BMI] 36.0-36.9, adult; Z20.822 Contact with and (suspected) exposure to COVID-19; Z79.82 Long term (current) use of aspirin
CPT/HCPCS: 36415; 36600; 43260; 51700; 70450; 71045; 74176; 74181; 74328; 80048; 80053; 81001; 81015; 82550; 82570; 82805; 82948; 83036; 83605; 83690; 83880; 84156; 84443; 84484; 85007; 85025; 85027; 85610; 87040; 88304; 93005; 93306; 94002; 94003; 94799; 96372; 99252; 99285; J0360; J1100; J1650; J1815; J1885; J1940; J2001; J2250; J2270; J2405; J2543; J7030; J7042; J7799; U0002